=== PATIENT | female | born 1955 | race Caucasian/White ===

== ENCOUNTER 2019-03-04 07:21 | Emergency (ER) | payer BC ==
[2019-03-04] MEDS ORDERED: MORPHINE SULFATE 4 MG/ML SYRINGE IM STA (07:34)
--- NOTE | 2019-03-04 07:40 | ED ---
Lower Extremity Injury HPI - General Chief Complaint: Extremity Injury, Lower Stated Complaint: ankle injury Time Seen by Provider: 03/04/19 07:27 Source: patient, RN notes reviewed, old records reviewed Mode of arrival: ambulatory Limitations: no limitations - History of Present Illness Initial Comments: Patient's a 64-year-old female, she presents emergency department today with her neighbors after she fell while walking outside to her car getting ready for work. Patient reports that she slipped, and complains of left ankle pain and swelling and she heard a pop within her ankle. Patient states that she's had no previous foot or ankle injuries. She denies any head or neck injury. She denies any other complaints including knee pain.Patient denies any recent fever, chills, shortness of breath, chest pain, back pain, abdominal pain, nausea vomiting, numbness or tingling, dysuria or hematuria, constipation or diarrhea, headaches or visual changes, or any other current symptoms - Related Data Previous Rx's Medication Instructions Recorded HYDROcodone/APAP 5-325MG [[place] 1 tab PO Q6HR PRN #10 tab 03/04/19 5-325] Allergies Allergy/AdvReac Type Severity Reaction Status Date / Time Penicillins Allergy Rash/Hives Verified 03/04/19 07:23 Review of Systems ROS Statement: Those systems with pertinent positive or pertinent negative responses have been documented in the HPI. ROS Other: All systems not noted in ROS Statement are negative. Past Medical History Past Medical History: Hyperlipidemia, Hypertension, Thyroid Disorder History of Any Multi-Drug Resistant Organisms: None Reported Past Surgical History: Tubal Ligation Additional Past Surgical History / Comment(s): R/L carpal tunnel, R hand Past Psychological History: No Psychological Hx Reported Smoking Status: Never smoker Past Alcohol Use History: None Reported Past Drug Use History: None Reported General Exam - General Exam Comments Initial Comments: 64-year-old female. Alert and oriented 3. Patient appears in moderate discomfort. Limitations: no limitations General appearance: alert Head exam: Present: atraumatic, normocephalic, normal inspection Eye exam: Present: normal appearance, PERRL, EOMI. Absent: scleral icterus, con junctival injection, periorbital swelling ENT exam: Present: normal exam, mucous membranes moist Neck exam: Present: normal inspection. Absent: tenderness, meningismus, lymphadenopathy Respiratory exam: Present: normal lung sounds bilaterally. Absent: respiratory distress, wheezes, rales, rhonchi, stridor Cardiovascular Exam: Present: regular rate, normal rhythm, normal heart sounds. Absent: systolic murmur, diastolic murmur, rubs, gallop, clicks GI/Abdominal exam: Present: soft, normal bowel sounds. Absent: distended, tenderness, guarding, rebound, rigid Left Knee exam: Present: normal inspection, full ROM Lower Leg exam: Present: normal inspection, full ROM Ankle exam: Present: full ROM, tenderness (over medial malleolus), swelling. Absent: normal inspection Foot/Toe exam: Present: normal inspection, full ROM Neurovascular tendon exam: Present: no vascular compromise (Strong dorsalis pedis pulse. Patient has normal sensation to toes with full range of motion of toes.) Gait: observed and limited by pain Back exam: Present: normal inspection Neurological exam: Present: alert, oriented X3, CN II-XII intact Psychiatric exam: Present: normal affect, normal mood Skin exam: Present: warm, dry, intact, normal color. Absent: rash Course Vital Signs 03/04/19 07:23 Temperature 97.4 F L Pulse Rate 66 Respiratory 18 Rate Blood Pressure 182/93 O2 Sat by Pulse 96 Oximetry Procedures - Orthopedic Splinting/Casting Injury #1 Side: left Upper Extremity Immobilizer: posterior splint Lower Extremity Injury Location: short leg Lower Extremity Immobilizer: posterior splint, stirrup splint, Franki wrap, synthetic pre-padded splint Other Orthopedic Equipment: crutches Additional Comments: Patient was reevaluated neurovascularly intact. Medical Decision Making - Medical Decision Making 64-year-old female presents today with left ankle injury after she rolled her ankle on the ice. She has evidence of a acute fibular fracture, posterior malleolus fracture. There is question for tell her fibular ligament injury with a possible small avulsion fracture. Patient was placed in a posterior splint, and is reevaluated and her Jamar intact. Dorsalis pedis pulses 2+ bilaterally. This time Patient is advised to use crutches, be nonweightbearing. She'll follow up with Shukri O next week. All questions were answered return parameters were discussed. - Radiology Data Radiology results: report reviewed Acute non-comminuted and mildly displaced resolving oriented fracture of the posterior malleolus. Acute obliquely oriented very minimally displaced non- comminuted distal fibular fracture. Diffuse soft tissue swelling. Punctate de nsity over the dorsal talus and lateral view on the tib-fib examination could relate to a small avulsion fracture from anterior towel fibular ligament injury. Disposition Clinical Impression: Ankle fracture, left Disposition: HOME SELF-CARE Condition: Good Instructions (If sedation given, give patient instructions): Ankle Fracture (ED) Additional Instructions: Advised to follow-up with orthopedic partial list for recheck and for cast placement. Patient's is to use with crutches. Return to the emergency department if any alarming signs or symptoms occur. Rest, ice, and elevate the foot. Prescriptions: HYDROcodone/APAP 5-325MG [[place] 5-325] 1 tab PO Q6HR PRN #10 tab PRN Reason: Pain Is patient prescribed a controlled substance at d/c from ED?: Yes If prescribed controlled substance>3 days was MAPS reviewed?: Prescribed <3 Days If opioid is for acute pain is fill amount 7 days or less?: Yes If Rx opioid, was Start Talking consent form obtained?: Yes Referrals: Ronak Meyers MD [Primary Care Provider] - 1-2 days Efrain Castillo DO [Medical Doctor] - 1-2 days Time of Disposition: 08:22
--- NOTE | 2019-03-04 08:10 | XR ---
EXAMINATION TYPE: XR ankle complete LT, XR foot complete LT DATE OF EXAM: 03/04/2019 CLINICAL HISTORY: Left ankle and foot pain and swelling after fall TECHNIQUE: Frontal, lateral and oblique images of the left ankle and foot are obtained. 2 views of t he left tibia and fibula were also obtained. COMPARISON: None. FINDINGS: There is an acute, very minimally displaced oblique fracture of the distal fibula. Displace ment is 1 mm laterally of the distal fracture fragment with no comminution seen. Diffuse overlying so ft tissue swelling is noted. There is the appearance of medial subluxation of the ankle joint with wi dening of the medial joint space however this is not reproduced on the tibia/fibula frontal view and is likely due to rotation. No wendy dislocation. Posterior malleolus fracture is also seen with 3 mm cephalad displacement of the posterior fracture fragment. No medial malleolus are fractures identifie d. Talar dome appears intact and unremarkable. Very small early plantar heel spur. No additional frac ture is seen within the left foot. Osseous mineralization is within normal limits. No additional frac ture within the tibia nor fibula. There is alignment of the knee. Punctate radiopaque densities seen overlying the dorsal talus on the lateral view. IMPRESSION: 1. Acute, noncomminuted, mildly displaced horizontally oriented fracture of the posterior malleolus. 2. Acute obliquely oriented very minimally displaced noncomminuted distal fibular fracture. 3. Diffuse soft tissue swelling of the ankle joint. 4. Punctate density overlies the dorsal talus on the lateral view of the tibia/fibula examination and could relate to small avulsion fracture from anterior talofibular ligament injury.
[2019-03-04 08:39] VITALS: BP 145/89; PULSE 62; RESP 16; TEMP 97.9
== END 2019-03-04 08:38 | disposition home or self-care (01) ==
LOC: EC 07:21
DX: S82.455A Nondisplaced comminuted fracture of shaft of left fibula, initial encounter for closed fracture (principal); S82.892A Other fracture of left lower leg, initial encounter for closed fracture; Z88.0 Allergy status to penicillin; W00.0XXA Fall on same level due to ice and snow, initial encounter; Y93.01 Activity, walking, marching and hiking; Y92.009 Unspecified place in unspecified non-institutional (private) residence as the place of occurrence of the external cause
CPT/HCPCS: 73590; 73610; 73630; 96372; 99284; 29515; J2270

== ENCOUNTER 2023-10-19 08:50 | Emergency (ER) | payer BC, OTHER ==
[2023-10-19 09:15] LABS: Glucose,Whole Blood 113 mg/dL (70-110)
[2023-10-19] MEDS: SODIUM CHLORIDE 0.9% 500 ML 500 ML IV STA (09:27)
[2023-10-19 09:31] VITALS: RESP 14
[2023-10-19 09:34] LABS: Basophils # (A) 0.1 k/uL (0-0.2); Basophils % (A) 1 %; Eosinophils # (A) 0.3 k/uL (0-0.7); Eosinophils % (A) 4 %; HGB 15.1 gm/dL (11.4-16.0); Lymphocytes % (A) 24 %; MCH 30.1 pg (25.0-35.0); MCHC 32.1 g/dL (31.0-37.0); MCV 93.7 fL (80.0-100.0); Mean Platelet Volume 8.7; Monocytes # (A) 0.7 k/uL (0-1.0); Monocytes % (A) 9 %; Neutrophils # (A) 4.8 k/uL (1.3-7.7); Neutrophils % (A) 59 %; Platelet Count 248 k/uL (150-450); RBC 5.01 m/uL (3.80-5.40); RDW 13.5 % (11.5-15.5); WBC 8.2 k/uL (3.8-10.6)
[2023-10-19 09:44] LABS: ALT 27 U/L (4-34); AST 31 U/L (14-36); African American GFR (CKD) 84 (>60 ml/min/1.73 sqM); Alkaline Phosphatase 67 U/L (38-126); Anion Gap 9 mmol/L; Blood Urea Nitrogen 10 mg/dL (7-17); Calcium 9.5 mg/dL (8.4-10.2); Carbon Dioxide 20 mmol/L (22-30); Chloride 110 mmol/L (98-107); Glucose 109 mg/dL (74-99); Lipase 213 U/L (23-300); Non-African American GFR(CKD) 73 (>60 ml/min/1.73 sqM); Sodium 139 mmol/L (137-145); Total Bilirubin 0.6 mg/dL (0.2-1.3); Total Protein 6.7 g/dL (6.3-8.2)
[2023-10-19 09:56] LABS: INR 0.9 (<1.2); Partial Thromboplastin Time 24.4 sec (22.0-30.0); Prothrombin Time 10.3 sec (10.0-12.5)
--- NOTE | 2023-10-19 10:33 | ED ---
Abdominal Pain HPI - General Chief Complaint: Abdominal Pain Stated Complaint: Urogenital Time Seen by Provider: 10/19/23 09:04 Source: patient Mode of arrival: ambulatory Limitations: no limitations - History of Present Illness Initial Comments: 68-year-old female with past medical history of CVA, no residual deficits who presents to the emergency department for GI bleeding. Patient had a flex sigmoidoscopy on October [address] Purcell at [facility]. She had 2 polyps removed at that time. She had been off of her Plavix until Thursday because of the procedure. She woke this morning and has had 4 episodes of bright red blood in the toilet. Patient appears pale and weak. She denies any abdominal pain or rectal pain. No fevers. No history of GI bleed in the past. Patient has no liver disease. No history of cirrhosis, esophageal varices. Patient denies any hematemesis. Patient does ambulate back to her exam room. Shortly after laying on the stretcher the patient goes unresponsive. The denies that the patient jung d any chest pain or decrease in her mental status until now - Related Data Home Medications Medication Instructions Recorded Confirmed Atorvastatin [Lipitor] 40 mg PO DAILY 03/04/19 10/19/23 Levothyroxine Sodium [Synthroid] 50 mcg PO DAILY 03/04/19 10/19/23 Metoprolol Tartrate [Lopressor] 50 mg PO BID 03/04/19 10/19/23 Sertraline [Zoloft] 100 mg PO DAILY 03/04/19 10/19/23 Aspirin EC [Ecotrin Low Dose] 81 mg PO DAILY 10/19/23 10/19/23 Mychal/D3/Mag11/Zinc/Vice President Digital Strategist/Adama/Bor 1 tab PO DAILY 10/19/23 10/19/23 [Caltrate 600+D Plus Tablet] Cholecalciferol (Vitamin D3) 50 mcg PO DAILY 10/19/23 10/19/23 [Vitamin D3 (50 Mcg = 2000 Iu)] Clopidogrel [Plavix] 75 mg PO DAILY 10/19/23 10/19/23 Cyanocobalamin (Vitamin B-12) 1,000 mcg PO DAILY 10/19/23 10/19/23 [Vitamin B-12] Magnesium Oxide [Mag-Ox] 400 mg PO DAILY PRN 10/19/23 10/19/23 Allergies Allergy/AdvReac Type Severity Reaction Status Date / Time Penicillins Allergy Rash/Hives Verified 10/19/23 10:02 Review of Systems ROS Statement: Those systems with pertinent positive or pertinent negative responses have been documented in the HPI. ROS Other: All systems not noted in ROS Statement are negative. Past Medical History Past Medical History: CVA/TIA, Hyperlipidemia, Hypertension, Thyroid Disorder History of Any Multi-Drug Resistant Organisms: None Reported Past Surgical History: Tubal Ligation Additional Past Surgical History / Comment(s): R/L carpal tunnel, R hand Past Psychological History: No Psychological Hx Reported Smoking Status: Former smoker Past Alcohol Use History: None Reported Past Drug Use History: None Reported General Exam Limitations: no limitations General appearance: alert, in no apparent distress Head exam: Present: atraumatic, normocephalic, normal inspection Eye exam: Present: normal appearance, PERRL, EOMI. Absent: scleral icterus, conjunctival injection, periorbital swelling ENT exam: Present: normal exam, mucous membranes moist Neck exam: Present: normal inspection. Absent: tenderness, meningismus, lymphadenopathy Respiratory exam: Present: normal lung sounds bilaterally. Absent: respiratory distress, wheezes, rales, rhonchi, stridor Cardiovascular Exam: Present: regular rate, normal rhythm, normal heart sounds. Absent: systolic murmur, diastolic murmur, rubs, gallop, clicks GI/Abdominal exam: Present: soft, normal bowel sounds. Absent: distended, tenderness, guarding, rebound, rigid Rectal exam: Present: bloody stool. Absent: mass Extremities exam: Present: normal inspection, full ROM, normal capillary refill. Absent: tenderness, pedal edema, joint swelling, calf tenderness Back exam: Present: normal inspection Neurological exam: Present: alert, oriented X3, CN II-XII intact Psychiatric exam: Present: normal affect, normal mood Skin exam: Present: warm, dry, intact, normal color. Absent: rash Course Vital Signs 10/19/23 10/19/23 10/19/23 08:56 09:11 09:18 Temperature 97.6 F Pulse Rate 71 53 L 54 L Respiratory 22 14 16 Rate Blood Pressure 110/74 145/90 117/86 O2 Sat by Pulse 97 Oximetry 10/19/23 10/19/23 10/19/23 09:30 09:50 10:02 Temperature 97.0 F L Pulse Rate 54 L 53 L 53 L Respiratory 14 14 14 Rate Blood Pressure 119/73 128/62 131/74 O2 Sat by Pulse 94 L 98 97 Oximetry 10/19/23 10:29 Temperature Pulse Rate 56 L Respiratory 14 Rate Blood Pressure 132/70 O2 Sat by Pulse 97 Oximetry Medical Decision Making - Medical Decision Making Was pt. sent in by a medical professional or institution (, PA, CASH MANAGEMENT OFFICER, urgent care, hospital, or correction...) When possible be specific @ -No Did you speak to anyone other than the patient for history (EMS, parent, family, police, friend...)? What history was obtained from this source @ -I spoke with the patient's for history Did you review nursing and triage notes (agree or disagree)? Why? @ -I reviewed and agree with nursing and triage notes Were old charts reviewed (outside hosp., previous admission, EMS record, old EKG, old radiological studies, urgent care reports/EKG's, correction records)? Report findings @ -No old charts were reviewed Differential Diagnosis (chest pain, altered mental status, abdominal pain women, abdominal pain men, vaginal bleeding, weakness, fever, dyspnea, syncope, headache, dizziness, GI bleed, back pain, seizure, CVA, palpatations, mental health, musculoskeletal)? @ -Differential GI Bleed: Esophageal varices, aortoenteric fistula, Betsy-Concepcion, gastritis, peptic ulcer disease, diverticulosis, inflammatory bowel disease, hemorrhoids, fissure, colitis, malignancy, Meckels diverticulum, this is not meant to be an all- inclusive list. EKG interpreted by me (3pts min.). @ -Yes and demonstrates sinus bradycardia with a rate of 53. NM interval 184. QRS 90. QTc of 440. No acute ST segment elevations or depressions X-rays interpreted by me (1pt min.). @ -None done CT interpreted by me (1pt min.). @ -None done U/S interpreted by me (1pt. min.). @ -None done What testing was considered but not performed or refused? (CT, X-rays, U/S, labs)? Why? @ -CT abdomen was considered however patient has no abdominal pain and cannot be hospitalized here therefore patient will be transferred to tertiary facility What meds were considered but not given or refused? Why? @ -None Did you discuss the management of the patient with other professionals (professionals i.e. DrFiliberto, PA, CASH MANAGEMENT OFFICER, lab, RT, psych nurse, psych social worker, prototype technician, teacher, police officer crime prevention, hospice case manager)? Give summary @ -I spoke with Dr. Joshua Mijares who agreed to accept transfer the patient Was smoking cessation discussed for >3mins.? @ -No Was critical care preformed (if so, how long)? @ -No Were there social determinants of health that impacted care today? How? (Homelessness, low income, unemployed, alcoholism, drug addiction, t ransportation, low edu. Level, literacy, decrease access to med. care, assisted, rehab)? @ -No Was there de-escalation of care discussed even if they declined (Discuss DNR or withdrawal of care, Hospice)? DNR status @ -No What co-morbidities impacted this encounter? (DM, HTN, Smoking, COPD, CAD, Cance r, CVA, ARF, Chemo, Hep., AIDS, mental health diagnosis, sleep apnea, morbid obesity)? @ -Colon polyps, stroke on antiplatelet Was patient admitted / discharged? Hospital course, mention meds given and route, prescriptions, significant lab abnormalities, going to OR and other pertinent info. @ -Upon arrival patient was seen and evaluated in room 7. Patient does ambulate back to her room however shortly goes unresponsive after laying down. Patient's eyes are moving around however she is unresponsive. Episode lasts about 10 seconds. There is no seizure-like activity and patient had no conv ulsions. Patient is placed on the desk monitor and does have a heart rate in the 40s. Twelve-lead EKG was obtained. 2 peripheral IVs are established. Patient given a 500 bolus of normal saline. Laboratory studies are conducted to include a type and screen. Patient remains hemodynamically stable. Hemoglobin is within normal range. Patient is kept on bedrest. Did recommend transfer to [facility] where patient had her original procedure performed. She does require GI services and they are not available at our facility. Patient was agreeable to transfer. COBRA forms are signed. I did speak with Dr. Mijares at [facility] where the patient was accepted. Patient transferred in stable condition Undiagnosed new problem with uncertain prognosis? @ -No Drug Therapy requiring intensive monitoring for toxicity (Heparin, Nitro, Insulin, Cardizem)? @ -No Were any procedures done? @ -No Diagnosis/symptom? @ -Acute lower GI bleed, acute syncope, status post sigmoidoscopy with polyp removal, history of CVA on Plavix, bradycardia Acute, or Chronic, or Acute on Chronic? @ -Acute Uncomplicated (without systemic symptoms) or Complicated (systemic symptoms)? @ -Complicated Side effects of treatment? @ -No Exacerbation, Progression, or Severe Exacerbation? @ -No Poses a threat to life or bodily function? How? (Chest pain, [place], [place], pneumonia, PE, COPD, DKA, ARF, appy, cholecystitis, CVA, Diverticulitis, Homicidal, Suicidal, threat to staff... and all critical care pts) @ -Yes as patient does go unresponsive during her visit - Lab Data Result diagrams: 10/19/23 09:20 10/19/23 09:20 Lab Results 10/19/23 10/19/23 10/19/23 Range/Units 09:12 09:20 09:20 WBC 8.2 (3.8-10.6) k/uL RBC 5.01 (3.80-5.40) m/uL Hgb 15.1 (11.4-16.0) gm/dL Hct 47.0 H (34.0-46.0) % MCV 93.7 (80.0-100.0) fL MCH 30.1 (25.0-35.0) pg MCHC 32.1 (31.0-37.0) g/dL RDW 13.5 (11.5-15.5) % Plt Count 248 (150-450) k/uL MPV 8.7 Neutrophils % 59 % Lymphocytes % 24 % Monocytes % 9 % Eosinophils % 4 % Basophils % 1 % Neutrophils # 4.8 (1.3-7.7) k/uL Lymphocytes # 2.0 (1.0-4.8) k/uL Monocytes # 0.7 (0-1.0) k/uL Eosinophils # 0.3 (0-0.7) k/uL Basophils # 0.1 (0-0.2) k/uL PT 10.3 (10.0-12.5) sec INR 0.9 (<1.2) APTT 24.4 (22.0-30.0) sec Sodium (137-145) mmol/L Potassium (3.5-5.1) mmol/L Chloride (98-107) mmol/L Carbon Dioxide (22-30) mmol/L Anion Gap mmol/L BUN (7-17) mg/dL Creatinine (0.52-1.04) mg/dL Est GFR (CKD-EPI)AfAm (>60 ml/min/1.73 sqM) Est GFR (CKD-EPI)NonAf (>60 ml/min/1.73 sqM) Glucose (74-99) mg/dL POC Glucose (mg/dL) 113 H (70-110) mg/dL POC Glu [employer] ID Josie Winkler Plasma Lactic Acid Erik (0.7-2.0) mmol/L Calcium (8.4-10.2) mg/dL Total Bilirubin (0.2-1.3) mg/dL AST (14-36) U/L ALT (4-34) U/L Alkaline Phosphatase (38-126) U/L Total Protein (6.3-8.2) g/dL Albumin (3.5-5.0) g/dL Lipase (23-300) U/L Blood Type Blood Type Confirm Blood Type Recheck Bld Type Recheck Status Antibody Screen Spec Expiration Date 10/19/23 10/19/23 10/19/23 Range/Units 09:20 09:20 09:20 WBC (3.8-10.6) k/uL RBC (3.80-5.40) m/uL Hgb (11.4-16.0) gm/dL Hct (34.0-46.0) % MCV (80.0-100.0) fL MCH (25.0-35.0) pg MCHC (31.0-37.0) g/dL RDW (11.5-15.5) % Plt Count (150-450) k/uL MPV Neutrophils % % Lymphocytes % % Monocytes % % Eosinophils % % Basophils % % Neutrophils # (1.3-7.7) k/uL Lymphocytes # (1.0-4.8) k/uL Monocytes # (0-1.0) k/uL Eosinophils # (0-0.7) k/uL Basophils # (0-0.2) k/uL PT (10.0-12.5) sec INR (<1.2) APTT (22.0-30.0) sec Sodium 139 (137-145) mmol/L Potassium 4.0 (3.5-5.1) mmol/L Chloride 110 H (98-107) mmol/L Carbon Dioxide 20 L (22-30) mmol/L Anion Gap 9 mmol/L BUN 10 (7-17) mg/dL Creatinine 0.83 (0.52-1.04) mg/dL Est GFR (CKD-EPI)AfAm 84 (>60 ml/min/1.73 sqM) Est GFR (CKD-EPI)NonAf 73 (>60 ml/min/1.73 sqM) Glucose 109 H (74-99) mg/dL POC Glucose (mg/dL) (70-110) mg/dL POC Glu [employer] ID Plasma Lactic Acid Erik 2.2 H* (0.7-2.0) mmol/L Calcium 9.5 (8.4-10.2) mg/dL Total Bilirubin 0.6 (0.2-1.3) mg/dL AST 31 (14-36) U/L ALT 27 (4-34) U/L Alkaline Phosphatase 67 (38-126) U/L Total Protein 6.7 (6.3-8.2) g/dL Albumin 4.0 (3.5-5.0) g/dL Lipase 213 (23-300) U/L Blood Type A Negative Blood Type Confirm Blood Type Recheck No Previous Record Bld Type Recheck Status CABO Indicated Antibody Screen NEGATIVE Spec Expiration Date 10/22/2023 - 231910/19/23 Range/Units 09:23 WBC (3.8-10.6) k/uL RBC (3.80-5.40) m/uL Hgb (11.4-16.0) gm/dL Hct (34.0-46.0) % MCV (80.0-100.0) fL MCH (25.0-35.0) pg MCHC (31.0-37.0) g/dL RDW (11.5-15.5) % Plt Count (150-450) k/uL MPV Neutrophils % % Lymphocytes % % Monocytes % % Eosinophils % % Basophils % % Neutrophils # (1.3-7.7) k/uL Lymphocytes # (1.0-4.8) k/uL Monocytes # (0-1.0) k/uL Eosinophils # (0-0.7) k/uL Basophils # (0-0.2) k/uL PT (10.0-12.5) sec INR (<1.2) APTT (22.0-30.0) sec Sodium (137-145) mmol/L Potassium (3.5-5.1) mmol/L Chloride (98-107) mmol/L Carbon Dioxide (22-30) mmol/L Anion Gap mmol/L BUN (7-17) mg/dL Creatinine (0.52-1.04) mg/dL Est GFR (CKD-EPI)AfAm (>60 ml/min/1.73 sqM) Est GFR (CKD-EPI)NonAf (>60 ml/min/1.73 sqM) Glucose (74-99) mg/dL POC Glucose (mg/dL) (70-110) mg/dL POC Glu [employer] ID Plasma Lactic Acid Erik (0.7-2.0) mmol/L Calcium (8.4-10.2) mg/dL Total Bilirubin (0.2-1.3) mg/dL AST (14-36) U/L ALT (4-34) U/L Alkaline Phosphatase (38-126) U/L Total Protein (6.3-8.2) g/dL Albumin (3.5-5.0) g/dL Lipase (23-300) U/L Blood Type Blood Type Confirm A Negative Blood Type Recheck Bld Type Recheck Status Antibody Screen Spec Expiration Date Disposition Clinical Impression: Lower GI bleed, Syncope, Bradycardia, H/O sigmoidoscopy Disposition: OTHER INSTITUTION NOT DEFINED Condition: Serious Is patient prescribed a controlled substance at d/c from ED?: No Referrals: Ronak Meyers MD [Primary Care Provider] - 1-2 days Time of Disposition: 10:51 - Out of Hospital Transfer - Req. Specs Out of Hospital Transfer - Requested Specifics: Other Emergency Center ([facility]
[2023-10-19 11:36] VITALS: BP 127/79; PULSE 58; TEMP 97.3
== END 2023-10-19 11:36 | disposition other institution (70) ==
LOC: EC 08:50
DX: K92.2 Gastrointestinal hemorrhage, unspecified (principal); R00.1 Bradycardia, unspecified; R55 Syncope and collapse; Z86.73 Personal history of transient ischemic attack (TIA), and cerebral infarction without residual deficits; Z79.02 Long term (current) use of antithrombotics/antiplatelets; Z87.19 Personal history of other diseases of the digestive system; Z87.891 Personal history of nicotine dependence; Z88.0 Allergy status to penicillin
CPT/HCPCS: 36415; 80053; 83605; 83690; 85025; 85610; 85730; 86850; 86900; 86901; 93005; 99285